=== PATIENT | female | born 1990 | race African-American/Black ===

== ENCOUNTER 2021-04-05 12:26 | Emergency (ER) | payer SELFPAY ==
[~2021-04-05] VITALS: Ht 157.5 cm; Wt 79.4 kg
--- NOTE | 2021-04-05 12:40 | NUR ---
BIBS FOR C/O LOWER ABD PAIN WITH VAGINAL & RECTAL PAIN SINCE 0600 TODAY. DENIES N/V/D OR VAGINAL DISCHARGE. RATES PAINS 10. WILL CONTINUE TO MONITOR THE PATIENT.
--- NOTE | 2021-04-05 13:02 | NUR ---
US TECH AT THE BEDSIDE
[2021-04-05 13:13] LABS: BILIRUBIN,URINE NEGATIVE (NEGATIVE); COLOR,URINE YELLOW (YELLOW); LEUKOCYTE ESTERASE ,URINE NEGATIVE (NEGATIVE); NITRITE, URINE NEGATIVE (NEGATIVE); PH,URINE 7.5 (5.0-8.0); PROTEIN,URINE NEGATIVE (NEGATIVE); UGLUCOSE NEGATIVE (NEGATIVE); UROBILINOGEN,URINE 0.2 EU/dL (0.2)
--- NOTE | 2021-04-05 13:30 | NUR ---
[facility] SENT TO THE LAB
[2021-04-05 13:38] LABS: BACTERIA,URINE Moderate /HPF (None Seen); RBC,URINE NONE SEEN /HPF (0-2); SQUAMOUS EPITHELIAL CELL,UR Few /HPF (None Seen); WBC,URINE NONE SEEN /HPF (0-3)
[2021-04-05 15:54] VITALS: BP 119/62
--- NOTE | 2021-04-05 15:55 | NUR ---
Patient discharged to home in stable condition. Written and verbal after care instructions given. Patient verbalizes understanding of instruction.
[2021-04-05] MEDS ORDERED: FLUCONAZOLE (100 MG) 100 MG TABLET PO ONE (16:00)
== END 2021-04-05 15:55 | disposition home or self-care (01) ==
LOC: ER 12:29
DX: B37.3 Candidiasis of vulva and vagina (principal); R10.2 Pelvic and perineal pain
CPT/HCPCS: 76856; 81001; 84703; 87086; 87210; 87491; 87591; 99284; A6403